=== PATIENT | female | born 1960 | race Caucasian/White ===

== ENCOUNTER 2017-07-09 11:02 | Emergency (ER) | payer MEDICAID, MEDICARE, OTHER ==
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
[2017-07-09] MEDS ORDERED: HYDROCODONE/APAP 5/325MG TABLET PO ONE (11:26)
--- NOTE | 2017-07-10 07:35 | RADIOLOGY REPORT ---
EXAM: LEFT SHOULDER COMPLETE HISTORY: PAIN POST FALL TODAY. MULTIPLE SHOULDER SURGERIES. TECHNIQUE: Internal and external humerus rotation AP views of the left shoulder were obtained as well as a scapular Y-view. Comparison: None. Encounter: Initial. FINDINGS: There is mild osteopenia. No acute fracture, dislocation, or destructive bone lesion is seen. There are mild to moderate hypertrophic degenerative changes of the acromioclavicular and glenohumeral joints. No focal soft tissue abnormality. IMPRESSION: OSTEOPENIA. NO ACUTE FRACTURE NOR DISLOCATION. MILD TO MODERATE DEGENERATIVE CHANGES OF THE LEFT ACROMIOCLAVICULAR AND GLENOHUMERAL JOINTS. JOB NUMBER: [id number] MTDD
--- NOTE | 2017-07-10 08:23 | RADIOLOGY REPORT ---
EXAM: LEFT KNEE, THREE VIEWS HISTORY: ACUTE PAIN POST FALL TODAY. TECHNIQUE: AP, lateral and sunrise views of the left knee were obtained. Comparison: None. Encounter: Initial. FINDINGS: There is borderline osteopenia. No acute fracture, dislocation, or destructive bone lesion is seen. There are mild tricompartmental degenerative changes. No joint effusion. No focal soft tissue abnormality. IMPRESSION: NO ACUTE FRACTURE NOR DISLOCATION. MILD TRICOMPARTMENTAL DEGENERATIVE CHANGES. JOB NUMBER: [id number] [facility]
--- NOTE | 2017-07-10 08:27 | RADIOLOGY REPORT ---
EXAM: LUMBAR SPINE, AP AND LATERAL VIEWS HISTORY: PAIN POST FALL. TECHNIQUE: AP and lateral views of the lumbar spine were obtained. Comparison: CT of the abdomen and pelvis without contrast dated 10/16/13. FINDINGS: There is borderline osteopenia. Five lumbar vertebra are identified. Minor levocurvature of the lower lumbar spine. The vertebral bodies are otherwise normal in alignment and height. No acute fracture is seen. No lytic or blastic bone lesion. Mild multilevel degenerative disk/end plate changes are present. Multilevel bilateral facet arthropathy is identified most pronounced at the lower lumbar levels where the changes are moderate to advanced. A metallic spinal fixation device is noted at the L4-L5 level. There are mild degenerative changes of the sacroiliac joints and moderate degenerative changes of the hips. Extensive post surgical changes in the upper abdomen. IMPRESSION: 1. NO ACUTE FRACTURE NOR SUBLUXATION. 2. MULTILEVEL DEGENERATIVE CHANGES, DETAILED ABOVE. 3. SPINOUS PROCESS FIXATION HARDWARE AT THE L4-L5 LEVEL. JOB NUMBER: [id number] [facility]
== END 2017-07-09 13:03 | disposition home or self-care (01) ==
LOC: ER 11:02
DX: S39.012A Strain of muscle, fascia and tendon of lower back, initial encounter (principal); S46.912A Strain of unspecified muscle, fascia and tendon at shoulder and upper arm level, left arm, initial encounter; M25.562 Pain in left knee; Z98.1 Arthrodesis status; W01.198A Fall on same level from slipping, tripping and stumbling with subsequent striking against other object, initial encounter; Y92.512 Supermarket, store or market as the place of occurrence of the external cause
CPT/HCPCS: 72100; 99283; 99284

== ENCOUNTER 2018-02-25 18:54 | Emergency (ER) | payer MEDICAID, MEDICARE ==
[2018-02-25] MEDS ORDERED: ONDANSETRON HCL IV 4 MG/2 ML VIAL IVP ONE (19:23)
[2018-02-25] MEDS ORDERED: 0.9 % SODIUM CHLORIDE 1,000 ML BAG IV ONE (19:23)
[2018-02-25] MEDS ORDERED: HYDROMORPHONE HCL 2 MG/ML VIAL IVP ONE ×3 (19:24→21:25)
[2018-02-25 19:33] LABS: EOS % 2.7 % (0-6); GRAN % 50.2 % (47-80); HEMATOCRIT 41.4 % (35.0-47.0); HEMOGLOBIN 13.6 gm/dl (11.6-16.0); LYMPH % 31.5 % (16-45); MEAN CELL VOLUME 92.2 fl (81-97); MEAN CORPUSCULAR HEMOGLOBIN 30.3 pg (27-33); MEAN CORPUSCULAR HGB CONC 32.9 g/dl (32-36); MEAN PLATELET VOLUME 8.6 fl (7.4-10.4); MONO % 14.6 % (0-9); PLATELET COUNT 304 K/uL (130-400); RED BLOOD COUNT 4.49 M/uL (3.80-5.40); RED CELL DISTRIBUTION WIDTH 13.1 % (11.5-14.5); WHITE BLOOD COUNT W/O DIFF 7.1 K/uL (4.2-12.2)
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
[2018-02-25 19:43] LABS: BLOOD UREA NITROGEN 8 mg/dL (8-23); CREATININE 0.8 mg/dL (0.5-0.9); EST GLOMERULAR FILTRATION RATE > 60 mL/min
[2018-02-25 19:44] LABS: TOTAL PROTEIN 6.7 g/dL (6.6-8.7)
[2018-02-25 19:46] LABS: GLUCOSE,RANDOM 95 mg/dL (74-109)
[2018-02-25 19:48] LABS: ALT/SGPT 16 U/L (<33)
[2018-02-25 19:49] LABS: ALB/GLOB RATIO 1.5 (1.1-1.8); ALKALINE PHOSPHATASE 124 U/L (35-104); AST/SGOT 21 U/L (10.0-35.0); LIPASE 22 U/L (13-60)
[2018-02-25 19:56] LABS: INR 0.9; PARTIAL THROMBOPLASTIN TIME 27.5 SECONDS (24.5-39.1); PROTHROMBIN TIME (PATIENT) 9.5 SECONDS (9.5-12.1)
[2018-02-25 20:31] LABS: URINE APPEARANCE CLEAR; URINE BILIRUBIN NEGATIVE (NEGATIVE); URINE BLOOD NEGATIVE (NEGATIVE); URINE COLOR YELLOW; URINE GLUCOSE (UA) NEGATIVE (NEGATIVE); URINE KETONE NEGATIVE (NEGATIVE); URINE LEUKOCYTE ESTERASE NEGATIVE (NEGATIVE); URINE NITRITE NEGATIVE (NEGATIVE); URINE PROTEIN NEGATIVE (NEGATIVE); URINE UROBILINOGEN 0.2 E.U./dL (0.20 - 1.00)
[2018-02-25] MEDS ORDERED: 0.9 % SODIUM CHLORIDE 1000ML 1,000 ML IV ONE (21:08)
[2018-02-25] MEDS ORDERED: 0.9 % SODIUM CHLORIDE 1000ML 1,000 ML IV PRN (22:26)
--- NOTE | 2018-02-28 13:31 | CT SCAN REPORT ---
EXAM: CT OF THE ABDOMEN AND PELVIS WITH CONTRAST HISTORY: ABDOMINAL PAIN, HISTORY OF MULTIPLE PRIOR ABDOMINAL SURGERIES INCLUDING PETE-EN-Y GASTRIC BYPASS. TECHNIQUE: CT of the abdomen and pelvis was obtained with IV and oral contrast. Approximately 100 ml of Omnipaque 300 intravenous contrast utilized. Comparison: None. FINDINGS: The visualized lung bases are clear. Unremarkable appearance of the liver. The gallbladder is surgically absent. Minimal prominence of the common bile duct, may be an expected finding following cholecystectomy. Mild diffuse atrophy of the pancreas. Unremarkable appearance of the spleen. Unremarkable appearance of the adrenal glands. Symmetric bilateral renal perfusion without evidence of hydronephrosis. The urinary bladder is mildly distended. The uterus is not seen. A pessary ring is seen in the pelvis. Post surgical changes are compatible with history of Pete-En-Y gastric bypass. There is mild dilatation of the gastric pouch and small bowel leading to the jejunal anastomosis in the left geno-abdomen. Contrast is seen within the small bowel distal to the anastomosis. No bowel wall pneumatosis. No free air or free fluid. No focal colonic thickening or inflammatory changes. No suspicious abdominal or pelvic adenopathy. The Pete limb appears unremarkable. Scattered calcification of the aortoiliac arterial access without evidence of aneurysmal dilatation. Degenerative changes of the thoracolumbar spine in both hips. No definite acute osseous findings. IMPRESSION: MILDLY DILATED APPEARANCE OF THE GASTRIC POUCH AND SMALL BOWEL PROXIMAL TO THE JEJUNAL ANASTOMOSIS, WITH CONTRAST SEEN WITHIN NONDILATED SMALL BOWEL LOOPS DISTAL TO THE ANASTOMOTIC LEVEL. THIS COULD REPRESENT ANASTOMOTIC STRICTURE RESULTING IN POSSIBLE PARTIAL OBSTRUCTION. JOB NUMBER: [id number] MTDD
== END 2018-02-25 22:45 | disposition short-term general hospital (02) ==
LOC: ER 18:54
DX: K56.600 Partial intestinal obstruction, unspecified as to cause (principal); R11.0 Nausea; Z98.84 Bariatric surgery status; F17.210 Nicotine dependence, cigarettes, uncomplicated
CPT/HCPCS: 99285 ×2; 96376; 96374; 96375; 83605; 83690; 85025; 85730; 85610; 80053; 81003; 74177; Q9967; J2405; J1170; J7030

== ENCOUNTER 2018-10-31 07:42 | Day surgery (SDC) | payer MEDICARE, MEDICAID ==
[~2018-10-31 07:42] MED LIST: RINGERS SOLUTION,LACTATED 1,000 ML IV ONE
[2018-10-31] MEDS ORDERED: MIDAZOLAM HCL 2MG/2ML VIAL IV ONE (07:43)
[2018-10-31] MEDS ORDERED: LIDOCAINE 2% MDV (20MG/ML) 20ML VIAL IV ONE (07:43)
[2018-10-31] MEDS ORDERED: FENTANYL PF 100MCG/2ML VIAL IV ONE (07:43)
[2018-10-31] MEDS ORDERED: PROPOFOL 10 MG/ML VIAL IV ONE (07:43)
[2018-10-31] MEDS ORDERED: LIDOCAINE 1% W/EPI 1:200,000 MPF 30ML SQ ONE (07:58)
[2018-10-31] MEDS ORDERED: DEXAMETHASONE PRESERVATIVE FREE 10MG/ML VIAL SQ ONE (07:59)
[2018-10-31] MEDS ORDERED: BUPIVACAINE 0.5% (5MG/ML) PF 30ML VIAL SQ ONE (07:59)
[2018-10-31] MEDS ORDERED: BUPIVACAINE 0.5% W/EPI MPF 30 ML VIAL SQ ONE (07:59)
--- NOTE | 2018-11-02 09:40 | Operative Note ---
DATE OF SURGERY: 10/31/2018 PREOPERATIVE DIAGNOSIS: Lumbar spondylosis with sacroiliitis, ICD10 code M46.1. OPERATION: Fluoroscopic-guided intraarticular injection bilateral SI. ANESTHESIA: Local with sedation. ANESTHESIA PROVIDER: Tyson Lozada CRNA INDICATION: This patient presents with primary back pain. Examination lumbar spine away from midline directly over the SI joints. Diagnostics confirm multiple-level spondylosis. PROCEDURE: Intravenous line, vital sign monitoring, IV sedation. Prepped and draped with sterile technique. Under imaging, the skin over the SI joints in the area of pain was identified and marked. Infiltrated with a 22-gauge 3-1/2 inch needle into the SI with 3 mL of 0.5% Marcaine . This was repeated bilaterally. Areas cleaned. Topical antibiotic, sterile dressing applied. We will monitor and evaluate. CC: Dr. Saleem TSAI
== END 2018-10-31 08:40 | disposition home or self-care (01) ==
LOC: SUR 07:42
PROVIDERS: ATTEND Pain Medicine Interventional Pain Medicine
DX: M46.1 Sacroiliitis, not elsewhere classified (principal); K21.9 Gastro-esophageal reflux disease without esophagitis; J45.909 Unspecified asthma, uncomplicated; I82.409 Acute embolism and thrombosis of unspecified deep veins of unspecified lower extremity
CPT/HCPCS: 27096; 01992; J1100; J3010; J7120

== ENCOUNTER 2019-01-23 05:33 | Day surgery (SDC) | payer MEDICARE, MEDICAID ==
[2019-01-23] MEDS ORDERED: FENTANYL PF 100MCG/2ML VIAL IV ONE (05:34)
[2019-01-23] MEDS ORDERED: PROPOFOL 10 MG/ML VIAL IV ONE (05:34)
[2019-01-23] MEDS ORDERED: LIDOCAINE 2% MDV (20MG/ML) 20ML VIAL IV ONE (05:34)
[2019-01-23] MEDS ORDERED: MIDAZOLAM HCL 2MG/2ML VIAL IV ONE (05:34)
[2019-01-23] MEDS ORDERED: RINGERS SOLUTION,LACTATED 1,000 ML IV ONE (06:00)
[2019-01-23] MEDS ORDERED: DEXAMETHASONE PRESERVATIVE FREE 10MG/ML VIAL SQ ONE (07:24)
[2019-01-23] MEDS ORDERED: BUPIVACAINE 0.5% (5MG/ML) PF 30ML VIAL IM ONE (07:25)
[2019-01-23] MEDS ORDERED: LIDOCAINE 1% W/EPI 1:200,000 MPF 30ML SQ ONE (07:25)
[2019-01-23] MEDS ORDERED: BUPIVACAINE 0.5% W/EPI MPF 30 ML VIAL SQ ONE (07:25)
--- NOTE | 2019-01-25 11:01 | Operative Note ---
DATE OF SURGERY: 01/23/2019 PREOPERATIVE DIAGNOSIS: Sacroiliitis, ICD10 code M46.1. OPERATION: Fluoroscopic-guided infiltration of block bilateral SI joint. ANESTHESIA: Local with sedation. ANESTHESIA PROVIDER: Lisa Geronimo CRNA INDICATION: This patient presents with back pain. Examination showed tenderness lumbar spine away from midline directly over the SI joints. Diagnostics show multilevel diffuse spondylosis. PROCEDURE: Intravenous line, vital sign monitoring, IV sedation, prepped and draped in sterile technique. Patient positioned prone. Sterile prep, sterile technique. Under imaging, the SI joints marked bilaterally. Skin infiltrated. A 22-gauge 3-1/2 inch needle under imaging into the SI, 3 mL of 0.5% Marcaine and dexamethasone injected for left, then right. Both needles removed. Back cleaned. Topical antibiotic and sterile dressing applied. Will monitor and evaluate. MTDD
== END 2019-01-23 08:09 | disposition home or self-care (01) ==
LOC: SUR 05:33
PROVIDERS: ATTEND Pain Medicine Interventional Pain Medicine
DX: M46.1 Sacroiliitis, not elsewhere classified (principal); K21.9 Gastro-esophageal reflux disease without esophagitis
CPT/HCPCS: J7120